=== PATIENT | male | born 1970 | race Caucasian/White ===

== ENCOUNTER 2017-12-17 11:48 | Observation (INO) ==
--- NOTE | 2017-12-17 15:06 | Discharge Summary ---
Date of Encounter: 12/17/17 Time of Encounter: 15:04 Hospital course: Mr. Cruz is a 47 year old male was brought in from [facility] for management of elevated troponin. patient left AMA as soon as he was brought to the floor. nurses were unable to obtain vitals. i did not see or evaluate the patient - Time Spent with Patient Total time spent providing and/or coordinating discharge services: Less than 30 minutes - Discharge Medications Home Medications: ALPRAZolam [Xanax 1 MG Tablet] 1 mg PO TID 12/17/17 [History] Clopidogrel [Plavix] 75 mg PO DAILY 12/17/17 [History] Gabapentin [Gralise] 900 mg PO TID 12/17/17 [History] Insulin ASPART [NovoLOG] 0 unit SQ TIDWM 12/17/17 [History] Rivaroxaban [Xarelto] 15 mg PO DAILY 12/17/17 [History] Allergies/Adverse Reactions: 3 Allergy/AdvReac Type Severity Reaction Status Date / Time ketorolac [From Toradol] Allergy Swelling Verified 12/17/17 09:23 of Lip/Tongue/Throat morphine Allergy Difficulty Verified 12/17/17 09:23 Breathing sertraline [From Zoloft] Allergy Swelling Verified 12/17/17 09:23 of Lip/Tongue/Throat Date of admission: 12/17/17 13:39 Primary care physician: PCP NONE - Constitutional Exam: did not see the patient - Patient Status Disposition: Left Against Medical Advice Condition: Undetermined Overall status at discharge: other - Discharge Instructions Follow Up With: NONE,PCP [Primary Care Provider] -
== END 2017-12-17 15:02 | disposition left against medical advice (07) ==
LOC: 2ANU
PROVIDERS: ADMIT Student in an Organized Health Care Education/Training Program; ATTEND Student in an Organized Health Care Education/Training Program